=== PATIENT | male | born 1985 | race African-American/Black ===

== ENCOUNTER 2016-04-19 16:29 | Emergency (ER) | payer SELFPAY ==
[~2016-04-19] VITALS: Ht 177.8 cm; Wt 113.4 kg
[2016-04-19 16:42] VITALS: BP 129/73
[2016-04-19] MEDS ORDERED: NAPROXEN 500 MG TABLET PO STA (16:52)
[2016-04-19] MEDS ORDERED: CYCL10TA2 PO (17:11)
[2016-04-19] MEDS ORDERED: NAPR500T8 PO (17:11)
--- NOTE | 2016-04-19 17:11 | PHYS DOC ---
Past Medical History Past Medical History: No Pertinent History Past Surgical History: Other Additional Past Surgical Histo: abd sx from [facility] Alcohol Use: None Drug Use: Marijuana Adult General Chief Complaint Chief Complaint: ANKLE PROBLEM HPI HPI Patient is a 30 year old male who presents with moderate right lower extremity pain that began today while playing basketball. Patient states he believes he "tore up or sprained" something on his right lower extremity. The pain is around the Achilles tendon region. He is refusing x-rays or any studies. He is requesting something for pain. Review of Systems Review of Systems Constitutional: Denies fever or chills [] Eyes: Denies change in visual acuity, redness, or eye pain [] Musculoskeletal: Right lower extremity pain Integument: Denies rash or skin lesions [] Neurologic: Denies headache, focal weakness or sensory changes [] Endocrine: Denies polyuria or polydipsia [] Current Medications Current Medications Current Medications Medications (Trade) Dose Ordered Sig/Hilario Start Time Stop Time Status Last Admin Dose Admin Acetaminophen/ Hydrocodone Bitart (Lortab 5/325) 2 tab 1X ONCE 04/19/16 17:30 04/19/16 17:31 Naproxen (Naprosyn) 500 mg 1X STAT 04/19/16 16:52 04/19/16 17:03 DC Allergies Allergies Allergies Coded Allergies Type Severity Reaction Last Updated Verified No Known Drug Allergies 04/19/16 No Physical Exam Physical Exam Constitutional: Well developed, well nourished, no acute distress, non-toxic appearance. [] HENT: Normocephalic, atraumatic, bilateral external ears normal, oropharynx moist, no oral exudates, nose normal. [] Skin: Warm, dry, no erythema, no rash. [] Back: No tenderness, no CVA tenderness. [] Extremities: Right lower extremity with no obvious deformity. Tenderness on palpation of the right Achilles tendon region. Patient able to flex and extend the right foot. +2 right pedal pulse. Cap refill less than 2 seconds the right lower extremity. Sensation intact to the right lower extremity. Neurologic: Alert and oriented X 3, normal motor function, normal sensory function, no focal deficits noted. [] Psychologic: Affect normal, judgement normal, mood normal. [] Current Patient Data Vital Signs Vital Signs Date Time Temp Pulse Resp B/P Pulse Ox O2 Delivery O2 Flow Rate FiO2 3/12/17 16:42 98.1 100 18 97 Room Air 98.1 EKG EKG [] Radiology/Procedures Radiology/Procedures [] Course & Med Decision Making Course & Med Decision Making Pertinent Labs and Imaging studies reviewed. (See chart for details) Patient is in the ED with right lower extremity pain specifically around the Achilles tendon and is concerned he could have tore up something or sprained his right ankle. He is able to flex and extend the right foot with no difficulties. We offered him x-rays in the ED. He has refused. He is requesting something for pain. He was given 2 Alvaton tablets, naproxen and Flexeril in the ED. Discharged with naproxen and Flexeril and instructed to follow-up with the orthopedic doctor tomorrow. Dragon Disclaimer Dragon Disclaimer This electronic medical record was generated, in whole or in part, using a voice recognition dictation system. Departure Departure Impression: Primary Impression: Right ankle sprain Disposition: HOME, SELF-CARE Condition: STABLE Referrals: SERGE HARRY MD Follow-up with the provided orthopedic doctor tomorrow Patient Instructions: Ankle Sprain Additional Instructions: You were seen for right ankle sprain. You were concerned you could have tore something on the right ankle region. We recommend you follow-up with the provided orthopedic doctor by calling his office tomorrow. Ice and elevate the extremity. Come to the ED at any point symptoms worsen. Scripts Naproxen 500 Mg Tablet.dr1 Tab PO BID #60 TAB Ref 1 Prov:JUANA SAMANO APRN 04/19/16 Cyclobenzaprine Hcl 10 Mg Tablet1 Tab PO TID #30 TAB Prov:JUANA SAMANO APRN 04/19/16 Problem Qualifiers Primary Impression: Right ankle sprain Encounter type: initial encounter Involved ligament of ankle: unspecified ligament Qualified Code: S93.401A - Sprain of unspecified ligament of right ankle, initial encounter JUANA SAMANO APRN Apr 19, 2016 17:11
[2016-04-19] MEDS ORDERED: HYDROCODONE/APAP 5/325MG TABLET. PO ONE (17:30)
== END 2016-04-19 17:19 | disposition home or self-care (01) ==
LOC: ER 16:29
DX: S93.491A Sprain of other ligament of right ankle, initial encounter (principal); F12.10 Cannabis abuse, uncomplicated; X50.9XXA Other and unspecified overexertion or strenuous movements or postures, initial encounter; X50.0XXA Overexertion from strenuous movement or load, initial encounter; Y93.89 Activity, other specified; Y99.8 Other external cause status; Y92.89 Other specified places as the place of occurrence of the external cause
CPT/HCPCS: 99283; 99284